=== PATIENT | female | born 1935 | race Caucasian/White ===

== ENCOUNTER 2018-06-25 15:04 | Outpatient (CLI) | payer MEDICARE, BC | END 2018-06-25 15:05 | disposition home or self-care (01) | LOC: BICRAD 15:04 | PROVIDERS: ATTEND Physician Assistant Medical | DX: M54.5 Low back pain (principal); M47.896 Other spondylosis, lumbar region; M51.36 Other intervertebral disc degeneration, lumbar region; Z98.890 Other specified postprocedural states | CPT/HCPCS: 72100 ==

== ENCOUNTER 2018-07-02 13:27 | Outpatient (CLI) | payer MEDICARE, BC ==
[~2018-07-02 13:27] MED LIST: Gadobenate Dimeglumine 529 MG/1 ML (20ML VIAL) ONE
--- NOTE | 2018-07-02 16:08 | MRI ---
MRI LUMBAR SPINE WITH AND WITHOUT CONTRAST: Date: 07/02/18 HISTORY: Lumbar disc degeneration. Pain running down left leg. COMPARISON: None. TECHNIQUE: MRI lumbar spine is performed without intravenous and with intravenous Gadolinium administration. Mul tisequential, multiplanar imaging is performed. FINDINGS: There is evidence of Type I and Type II Modic changes involving multiple end plates, throughout the l umbar spine. Lumbar spine vertebral body height is maintained. No fracture. No evidence of edema due to fracture on the STIR sequence. 3.9 mm of retrolisthesis of L2 upon L1. Overall, the marrow signal intensity is appropriate on The T1-weighted images. There appears to be a hemangioma at the L4 level. There is no pathologic enhancement of the vertebral bodies. No abnormal e nhancement within the thecal sac, including the cauda equina and conus medullaris. The overall AP diameter of the central spinal canal is diminutive secondary to congenitally foreshort ened pedicles. Right extrarenal pelvis is noted. Small left renal cyst is identified, measuring 8.0 mm. Symmetric si gnal intensity of the psoas muscles. T12-L1: Desiccation with mild loss of disc space height. There are small left and right paracentral disc bulg es. No significant central canal stenosis. Mild bilateral foraminal narrowing. L1-L2: Desiccation with moderate loss of disc space height. Generalized disc bulge, ligamentum flavum thicke hali, and facet hypertrophy result in mild central canal stenosis. Moderate bilateral foraminal narro wing. L2-L3: Moderate loss of disc space height. There is a generalized disc bulge with a left subarticular compon ent. There is presumed mass effect and obscuration of the traversing left L3 nerve root. There is jose carlos ateral facet hypertrophy. Moderate right and severe left foraminal narrowing. L3-L4: Desiccation with moderate loss of disc space height. Generalized disc bulge, ligamentum flavum thicke hali, and facet hypertrophy result in mild central canal stenosis. Moderate bilateral neural foramina l narrowing. L4-L5: Desiccation with mild loss of disc space height. Generalized disc bulge with left and right paracentr al disc protrusions. There is ligamentum flavum thickening and facet hypertrophy. In the left subarti cular zone, there is an area of T1 isointensity with T2 hypointensity. The signal characteristics is similar to a disc on multiple sequences. There is some adjacent peripheral enhancement. This disc pro trusion measures 7.0 mm. There is mass effect and obscuration of the traversing left L5 nerve root. A djacent enhancement is presumed to be due to granulation tissue. There is a left hemilaminectomy defe ct. Moderate bilateral foraminal narrowing. L5-S1: Desiccation with moderate loss of disc space height. Generalized disc bulge, ligamentum flavum thicke hali, and facet hypertrophy result in moderate to severe central canal stenosis. Lolis is fluid in bot h facet joints. There is bilateral facet hypertrophy. Moderate bilateral foraminal narrowing. There i s a left hemilaminectomy defect with enhancing scar tissue at the operative site. IMPRESSION: 1. Left hemilaminectomy defect at L4-L5. There is a combination of disc material and scar tissue in the left subarticular zone with obscuration of traversing left L5 nerve root. 2. Additional levels of significant degenerative change as described above. POS: [facility]
== END 2018-07-02 13:28 | disposition home or self-care (01) ==
LOC: TBSIIMAG 13:27
PROVIDERS: ATTEND Neurological Surgery
DX: M51.36 Other intervertebral disc degeneration, lumbar region (principal); L90.5 Scar conditions and fibrosis of skin; M99.83 Other biomechanical lesions of lumbar region; M48.8X5 Other specified spondylopathies, thoracolumbar region; M48.061 Spinal stenosis, lumbar region without neurogenic claudication; M48.8X6 Other specified spondylopathies, lumbar region; M48.8X7 Other specified spondylopathies, lumbosacral region; M48.07 Spinal stenosis, lumbosacral region; Z98.890 Other specified postprocedural states
CPT/HCPCS: 72158; 82565; A9579

== ENCOUNTER 2019-02-13 10:11 | Outpatient (CLI) | payer MEDICARE, BC ==
--- NOTE | 2019-02-13 12:28 | RAD ---
2 VIEWS CHEST: Date: 02/13/19 COMPARISON: 08/19/08. HISTORY: Cough, sinus infection. FINDINGS: Mild increased linear interstitial density with mild pulmonary hyperinflation suggesting air trapping . Heart and mediastinal contour grossly unremarkable with no pneumothorax, pleural fluid, focal conso lidation, or alveolar edema. Multilevel degenerative change noted within the thoracic spine with mid thoracic spine disc space narrowing and anterior osteophyte formation. IMPRESSION: Interstitial prominence and pulmonary hyperinflation. Findings may signify COPD in the proper clinica l setting. There is no focal consolidation or alveolar edema. POS: [facility]
== END 2019-02-13 10:12 | disposition home or self-care (01) ==
LOC: BICRAD 10:11
PROVIDERS: ATTEND Family Medicine
DX: R05 Cough (principal); R91.8 Other nonspecific abnormal finding of lung field
CPT/HCPCS: 71046

== ENCOUNTER 2019-03-06 12:13 | Outpatient (CLI) | payer MEDICARE, BC ==
--- NOTE | 2019-03-06 13:01 | ULT ---
ULTRASOUND WITH DOPPLER DUPLEX VENOUS LOWER EXTREMITY LEFT: HISTORY: Left lower extremity edema in an 83-year-old female. TECHNIQUE: Color flow Doppler, spectral waveform analysis of pulsed Doppler, and ding-scale imaging with nicki maco and augmentation, were used to evaluate the left common femoral, femoral, popliteal, posterior t ibial, and superficial femoral, veins; and the proximal portions of the profunda femoral and greater saphenous, veins. FINDINGS: There is normal compressibility, demonstration of blood flow by color Doppler and pulsed Doppler, and response to augmentation, in all interrogated veins. IMPRESSION: Negative. No deep vein thrombosis in the left lower extremity. jn[] POS: [facility]
== END 2019-03-06 12:14 | disposition home or self-care (01) ==
LOC: BICULT 12:13
PROVIDERS: ATTEND Family Medicine
DX: R60.0 Localized edema (principal)

== ENCOUNTER 2019-03-26 11:03 | Emergency (ER) | payer MEDICARE, BC ==
[2019-03-26 12:14] LABS: #Basophils 0.1 thou/uL (0.0-0.2); #Lymphocytes 1.7 thou/uL (1.20-3.40); #Monocytes 0.6 thou/uL (0.11-0.59); #Neutrophils 3.2 thou/uL (1.40-6.50); %Basophils 1.4 % (0.0-1.0); %Eosinophils 0.9 % (0.0-10.0); %Lymphocytes 29.7 % (21.0-51.0); %Monocytes 11.1 % (0.0-10.0); %Neutrophils 56.9 % (42.0-75.0); Hemoglobin 13.3 g/dL (12.0-16.0); Mean Corpuscular HGB CONC 34.3 g/dL (32.0-36.0); Mean Corpuscular Hemoglobin 31.1 pg (27.0-31.0); Mean Corpuscular Volume 90.4 fL (78.0-98.0); Mean Platelet Volume 7.7 fL (7.4-10.4); Platelet Count 223 thou/uL (130-400); RBC Distribution Width 11.1 % (11.5-14.5); Red Blood Cell (RBC) Count 4.27 mill/uL (4.20-5.40); White Blood Cell (WBC) Count 5.6 thou/uL (4.8-10.8)
[2019-03-26 12:25] LABS: ALT (SGPT) 11 U/L (8-55); AST (SGOT) 14 U/L (5-34); Albumin 4.4 g/dL (3.4-4.8); Alkaline Phosphatase 82 U/L (40-150); Anion Gap 15 mmol/L (10-20); BUN (Urea Nitrogen) 10 mg/dL (9.8-20.1); Bilirubin, Total 0.6 mg/dL (0.2-1.2); Calc. Creatinine Clearance 0 mL/min (70-130); Calcium 9.7 mg/dL (7.8-10.44); Carbon Dioxide 23 mmol/L (23-31); Chloride 102 mmol/L (98-107); Estimated GFR-MDRD 77; Globulin 2.8 g/dL (2.4-3.5); Glucose 99 mg/dL (83-110); Potassium 4.1 mmol/L (3.5-5.1); Protein, Total 7.2 g/dL (6.0-8.3); Sodium 136 mmol/L (136-145)
== END 2019-03-26 12:52 | disposition home or self-care (01) ==
LOC: SCSER 11:03
DX: I10 Essential (primary) hypertension (principal); I48.91 Unspecified atrial fibrillation; K21.9 Gastro-esophageal reflux disease without esophagitis; Z79.899 Other long term (current) drug therapy; Z79.82 Long term (current) use of aspirin
CPT/HCPCS: 80053; 84484; 85025; 93005

== ENCOUNTER 2019-12-04 16:45 | Emergency (ER) | payer MEDICARE, BC ==
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
== END 2019-12-04 19:38 | disposition home or self-care (01) ==
LOC: ERS 16:45
DX: R07.89 Other chest pain (principal); I48.91 Unspecified atrial fibrillation; K21.9 Gastro-esophageal reflux disease without esophagitis; I10 Essential (primary) hypertension; E03.9 Hypothyroidism, unspecified; Z79.899 Other long term (current) drug therapy; Z79.82 Long term (current) use of aspirin; V43.52XA Car driver injured in collision with other type car in traffic accident, initial encounter
CPT/HCPCS: 71045